=== PATIENT | male | born 1975 | race Caucasian/White ===

== ENCOUNTER 2020-12-24 09:23 | Emergency (ER) | payer OTHER ==
[~2020-12-24] VITALS: Ht 162.6 cm; Wt 90.7 kg
[2020-12-24 10:30] LABS: BASOPHILS 0.6 % (0.0-2.0); EOSINOPHILS 1.1 % (0.0-3.0); HEMATOCRIT 47.9 % (42.0-52.0); LYMPHOCYTES 17.3 % (24.0-44.0); MCH 29.7 pg (26.0-34.0); MCHC 33.4 g/dL (28.0-37.0); MONOCYTES 6.1 % (1.0-8.0); PLATELET COUNT 266 thou/uL (150-400); POLYS 74.9 % (36.0-66.0); RBC 5.38 mil/uL (4.50-6.00); RDW 12.9 % (10.5-14.5); WBC 10.7 thou/uL (4.0-11.0)
[2020-12-24 10:37] LABS: ANION GAP 9 mmol/L (7-16); BUN 18 mg/dL (7-18); CALCIUM 9.3 mg/dL (8.5-10.1); CHLORIDE 105 mmol/L (98-107); CO2 27 mmol/L (21-32); CREATININE 0.9 mg/dL (0.7-1.3); GLUCOSE 116 mg/dL (74-106); SODIUM 141 mmol/L (136-145)
[2020-12-24 10:45] LABS: DIRECT BILIRUBIN < 0.1 mg/dL (<0.1-0.2); LIPASE 81 U/L (73-393); SGOT 34 U/L (15-37); SGPT 71 U/L (16-63); TOTAL BILIRUBIN 0.5 mg/dL (0.2-1.0); TOTAL PROTEIN 8.2 g/dL (6.4-8.2)
[2020-12-24] MEDS ORDERED: PEPCID20 MG PO (12:49)
[2020-12-24 12:55] VITALS: BP 173/102
== END 2020-12-24 12:55 | disposition home or self-care (01) ==
LOC: ER 09:23
PROVIDERS: Student in an Organized Health Care Education/Training Program
DX: R11.0 Nausea (principal); R42 Dizziness and giddiness; R10.13 Epigastric pain